=== PATIENT | male | born 1980 | race Caucasian/White ===

== ENCOUNTER 2021-01-20 03:43 | Inpatient (IN) ==
[2021-01-20] MEDS ORDERED: SODIUM CHLORIDE 0.9% 1,000 ML IV STA (03:57)
[2021-01-20 04:22] LABS: Basophils % 0.1 % (0.0-0.8); Hematocrit 44.4 VOL% (42.0-52.0); Hemoglobin 14.9 GM/DL (14.0-18.0); Immature Granulocytes % 0.7 %; Immature Granulocytes Absolute 0.05 #; Lymphocytes # 1.3 10*3/uL (1.4-4.0); Lymphocytes % 19.1 % (21.2-54.2); Mean Corpuscular HGB Conc 33.6 GM/DL (32-36); Mean Corpuscular Volume 90.6 FL (87-102); Mean Platelet Volume 10.6 FL (9.6-12.0); Monocytes % 5.9 % (1.7-12.7); Neutrophils % 74.2 % (38.7-73.9); Platelet Count 151 T/CUMM (130-400); Red Cell Distribution Width 13.5 % (9.3-17.3); White Blood Count 6.8 T/CUMM (4-12)
[2021-01-20 04:46] LABS: Albumin 3.4 G/DL (3.4-5.0); Bilirubin,Total 1.1 MG/DL (0.20-1.00); Calcium 8.9 MG/DL (8.5-10.1); Osmolality,Calculated 272.8 MOS/KG (273-304); Potassium 3.8 MMOL/L (3.5-5.1); Total Protein 7.1 G/DL (6.4-8.2)
[2021-01-20] MEDS ORDERED: ONDANSETRON 4 MG/2 ML VIAL IV STA (04:50)
[2021-01-20] MEDS ORDERED: DEXAMETHASONE 4 MG/1 ML VIAL IV STA (05:10)
[2021-01-20] MEDS ORDERED: LEVOFLOXACIN INJ 750 MG/150 ML PREMIX IV STA (05:10)
[2021-01-20] MEDS ORDERED: ONDANSETRON 4 MG/2 ML VIAL IV PRN (05:57)
[2021-01-20] MEDS ORDERED: MELATONIN 3 MG TABLET PO PRN (05:57)
[2021-01-20] MEDS ORDERED: ACETAMINOPHEN 325 MG TABLET PO PRN (05:57)
[2021-01-20] MEDS: ENOXAPARIN 40 MG/0.4 ML SYRINGE SUBCUT SCH (06:37)
[2021-01-20] MEDS ORDERED: hydrALAZINE 20 MG/1 ML VIAL IV PRN (07:52)
[2021-01-20] MEDS: CETIRIZINE 10 MG TABLET PO SCH (10:05)
[2021-01-20] MEDS: ZINC GLUCONATE 50 MG TABLET PO SCH (10:05)
[2021-01-20] MEDS: DEXAMETHASONE 4 MG/1 ML VIAL IV SCH (10:05)
[2021-01-20] MEDS: FAMOTIDINE 20 MG TABLET PO SCH ×2 (10:05→21:07)
[2021-01-20] MEDS: ASCORBIC ACID 500 MG TABLET PO SCH ×2 (10:05→21:07)
[2021-01-20] MEDS: CHOLECALCIFEROL 1,000 UNIT TABLET PO SCH (10:05)
[2021-01-20] MEDS: IVERMECTIN 3 MG TABLET PO SCH (10:20)
[2021-01-21] MEDS: ENOXAPARIN 40 MG/0.4 ML SYRINGE SUBCUT SCH (06:17)
[2021-01-21] MEDS: LEVOFLOXACIN INJ 750 MG/150 ML PREMIX IV SCH (06:18)
[2021-01-21 06:46] LABS: Hematocrit 41.9 VOL% (42.0-52.0); Hemoglobin 13.6 GM/DL (14.0-18.0); Immature Granulocytes Absolute 0.06 #; Lymphocytes % 15.8 % (21.2-54.2); Mean Corpuscular HGB Conc 32.5 GM/DL (32-36); Mean Corpuscular Volume 92.7 FL (87-102); Mean Platelet Volume 10.8 FL (9.6-12.0); Monocytes % 5.6 % (1.7-12.7); Neutrophils % 77.6 % (38.7-73.9); Platelet Count 181 T/CUMM (130-400); Red Blood Count 4.52 MC/CUMM (3.8-5.5); Red Cell Distribution Width 13.2 % (9.3-17.3); White Blood Count 6.1 T/CUMM (4-12)
[2021-01-21 07:16] LABS: Bilirubin,Total 0.7 MG/DL (0.20-1.00); Calcium 8.9 MG/DL (8.5-10.1); Ferritin 846.7 ng/ml (26-388); Osmolality,Calculated 279.7 MOS/KG (273-304); Potassium 4.1 MMOL/L (3.5-5.1); Total Protein 6.3 G/DL (6.4-8.2)
[2021-01-21] MEDS ORDERED: AZITHROMYCIN 250 MG TABLET PO SCH (09:00)
[2021-01-21] MEDS: ZINC GLUCONATE 50 MG TABLET PO SCH (10:28)
[2021-01-21] MEDS: DEXAMETHASONE 4 MG/1 ML VIAL IV SCH (10:28)
[2021-01-21] MEDS: FAMOTIDINE 20 MG TABLET PO SCH ×2 (10:28→21:05)
[2021-01-21] MEDS: CHOLECALCIFEROL 1,000 UNIT TABLET PO SCH (10:29)
[2021-01-21] MEDS: CETIRIZINE 10 MG TABLET PO SCH (10:29)
[2021-01-21] MEDS: ATORVASTATIN 80 MG TABLET PO SCH (10:29)
[2021-01-21] MEDS: ASCORBIC ACID 500 MG TABLET PO SCH ×2 (10:29→21:05)
[2021-01-21] MEDS: amLODIPine 10 MG TABLET PO SCH (10:29)
[2021-01-21] MEDS: IVERMECTIN 3 MG TABLET PO SCH (10:30)
[2021-01-21] MEDS: SODIUM CHLORIDE 0.9% 1,000 ML IV SCH (17:29)
[2021-01-22] MEDS: SODIUM CHLORIDE 0.9% 1,000 ML IV SCH (02:25)
[2021-01-22] MEDS: ENOXAPARIN 40 MG/0.4 ML SYRINGE SUBCUT SCH (07:05)
[2021-01-22] MEDS: LEVOFLOXACIN INJ 750 MG/150 ML PREMIX IV SCH (07:06)
[2021-01-22 07:55] LABS: Basophils % 0.1 % (0.0-0.8); Hemoglobin 13.7 GM/DL (14.0-18.0); Immature Granulocytes % 1.2 %; Lymphocytes % 11.9 % (21.2-54.2); Mean Corpuscular HGB Conc 35.1 GM/DL (32-36); Mean Corpuscular Volume 90.3 FL (87-102); Mean Platelet Volume 10.6 FL (9.6-12.0); Monocytes % 5.8 % (1.7-12.7); Platelet Count 206 T/CUMM (130-400); Red Blood Count 4.32 MC/CUMM (3.8-5.5); Red Cell Distribution Width 13.2 % (9.3-17.3); White Blood Count 8.3 T/CUMM (4-12)
[2021-01-22 08:29] LABS: Calcium 8.5 MG/DL (8.5-10.1); Ferritin 676.4 ng/ml (26-388); Osmolality,Calculated 281.4 MOS/KG (273-304); Potassium 3.6 MMOL/L (3.5-5.1)
[2021-01-22] MEDS: ATORVASTATIN 80 MG TABLET PO SCH (08:54)
[2021-01-22] MEDS: CHOLECALCIFEROL 1,000 UNIT TABLET PO SCH (08:54)
[2021-01-22] MEDS: amLODIPine 10 MG TABLET PO SCH (08:54)
[2021-01-22] MEDS: ZINC GLUCONATE 50 MG TABLET PO SCH (08:54)
[2021-01-22] MEDS: FAMOTIDINE 20 MG TABLET PO SCH (08:54)
[2021-01-22] MEDS: IVERMECTIN 3 MG TABLET PO SCH (08:55)
[2021-01-22] MEDS: DEXAMETHASONE 4 MG/1 ML VIAL IV SCH (08:55)
[2021-01-22] MEDS: CETIRIZINE 10 MG TABLET PO SCH (08:56)
[2021-01-22] MEDS: ASCORBIC ACID 500 MG TABLET PO SCH (09:08)
[2021-01-22 16:01] VITALS: BP 114/73
== END 2021-01-22 17:25 | disposition home or self-care (01) | DRG 177 ==
LOC: SUATTDRO → N.ED 03:43 → N.EDINP 05:37 → N.2E 15:00
PROVIDERS: ADMIT Internal Medicine; ATTEND Internal Medicine